=== PATIENT | female | born 1950 | race Caucasian/White ===

== ENCOUNTER → 2016-07-27 | Outpatient (CLI) | payer MEDICARE, BC ==
--- NOTE | 2016-07-27 12:59 | KCIC ---
PROCEDURE MR of the right knee HISTORY Right knee pain after injury 1 month ago. COMPARISON None TECHNIQUE Routine multiplanar sequences are obtained. FINDINGS Tear of the medial meniscus. No evidence of a lateral meniscal tear. High-grade tear of the anterior cruciate ligament. Anterior translation of the tibia. Acute pivot-shift subchondral bone injuries at the posterior medial and lateral tibial plateaus. Posterior cruciate ligament demonstrates some mild signal and ill definition with thickening at its distal 1/2, compatible with a sprain or partial tear. No complete rupture. Mild proximal medial collateral ligament sprain. Iliotibial band unremarkable. There is some thickening and increased signal at the femoral attachment of the fibular collateral ligament, compatible with some degeneration or possibly a sprain. There is no complete rupture or laxity. Biceps femoris tendon intact. The popliteus tendon demonstrates mild degenerative appearance without rupture. Extensor mechanism is intact. Moderate joint effusion. Edema and fluid within the infrapatellar fat. Mild soft tissue edema/hemorrhage around the knee. No significant Lim's cyst. IMPRESSION 1. High-grade anterior cruciate ligament tear with pivot-shift bone injuries. 2. Sprain or partial tear of the distal posterior cruciate ligament. 3. Medial meniscal tear. 4. Mild signal at the proximal fibular collateral ligament is likely degenerative, less likely a mild sprain. Electronically signed by: Kamaljit Arreola MD (Jul 27, 2016 12:57:53)
== END | disposition home or self-care (01) ==
LOC: KCIC MRI 10:40
PROVIDERS: ATTEND Physician Assistant Surgical
DX: M25.561 Pain in right knee (principal); G89.29 Other chronic pain
CPT/HCPCS: 73721